=== PATIENT | male | born 1990 | race Two or more races ===

== ENCOUNTER 2020-12-11 12:00 | Emergency (ER) | payer OTHER ==
[~2020-12-11] VITALS: Ht 180.3 cm; Wt 81.6 kg
--- NOTE | 2020-12-11 12:13 | NUR ---
pt bib [employer] for medical clearance. per PD report, pt states that he was covid positive but while being triage pt denies that he tested positive for covid. pt does endorses having "sweats" x 2 days but denies cough, congestion and fever. stable vitals. nad noted. awaiting md ortega.
--- NOTE | 2020-12-11 12:25 | NUR ---
swabbed for covid, specimen send to lab. radiology at bedside for chest xray.
--- NOTE | 2020-12-11 13:31 | NUR ---
medically cleared. pt discharged to [employer] officer in stable condition.
[2020-12-11 13:33] VITALS: BP 148/84
== END 2020-12-11 13:33 ==
LOC: ER 12:23
DX: Z02.89 Encounter for other administrative examinations (principal); Z20.822 Contact with and (suspected) exposure to COVID-19
CPT/HCPCS: 71045; 87426; 99284; C9803